=== PATIENT | female | born 1985 | race Caucasian/White ===

== ENCOUNTER → 2017-12-26 14:49 | Outpatient (CLI) | payer OTHER, SELFPAY ==
[2017-12-26 21:21] LABS: Chlamydia Trachomatis by PCR Negative (Negative); Neisserai gonorrhoeae by PCR Negative (Negative); Probe Check PASS; Sample Adequacy Control PASS; Specimen Processing Control PASS
== END ==
PROVIDERS: Visit Provider Obstetrics & Gynecology
DX: Z11.3 Encounter for screening for infections with a predominantly sexual mode of transmission (principal)
CPT/HCPCS: 87491; 87591

== ENCOUNTER → 2018-01-30 11:36 | Outpatient (CLI) | payer OTHER, SELFPAY ==
[2018-01-30 14:07] LABS: Absolute Neutrophil Count 7.2 X10^3/uL (2.0-7.7); Basophil# 0.01 X10^3/uL; Basophil% 0.1 % (0-1); Eosinophil# 0.12 X10^3/uL; Eosinophils% 1.3 % (0-5); Hematocrit 40.7 % (37-47); Hemoglobin 14.3 g/dl (12.0-15.0); Lymphocyte % 16.1 % (19-41); Mean Corp Hgb Conc 35.1 g/gl (32-36); Mean Corpuscular Hgb 33.1 pg (27.0-32.0); Mean Corpuscular Volume 94.2 fL (81-99); Mean Platelet Vol. 9.9 fl (6.2-12.0); Monocyte# 0.47 X10^3/uL; Neutrophil # 7.22 X10^3/uL (2.7-7.7); Neutrophil % 77.4 % (47-70); Platelet Count 261 K/mm3 (150-450); RBC Distribution Width CV 12.2 % (11.6-14.6); Red Blood Count 4.32 M/mm3 (4.2-5.4); White Blood Count 9.3 K/mm3 (4.4-11.0)
[2018-01-30 14:10] LABS: POSITIVE COUNT NO; POSITIVE DIFFERENTIAL NO; POSITIVE MORPHOLOGY NO
[2018-01-30 14:24] LABS: Thyroid Stim Hormone (TSH) 0.73 uIU/mL (0.358-3.74)
[2018-01-30 14:47] LABS: Amphetamine Urine VISTA NEGATIVE (<1000 ng/mL); Barbiturate Urine VISTA NEGATIVE (< 200 ng/mL); Benzodiazepine Urine VISTA NEGATIVE (< 200 ng/mL); Cocaine Urine VISTA NEGATIVE (< 300 ng/mL); Ecstacy Urine VISTA NEGATIVE (< 500 ng/mL); Methadone Urine VISTA NEGATIVE (< 300 ng/mL); PCP Urine VISTA NEGATIVE (< 25 ng/mL); THC Urine VISTA NEGATIVE (< 50 ng/mL); Vista UDS pH Range 5
[2018-01-30 14:54] LABS: Color, Urine Yellow (Yellow); Glucose, Dipstick Normal (Normal); Ketone-Dipstick Negative (Negative); Leukocyte Esterase-Dipstick 25 /ul (Negative); Nitrite-Dipstick Negative (Negative); Occult Blood-Urine Negative /ul (Negative); Protein-Dipstick Negative (Negative); Urine Bilirubin Dipstick Negative (Negative); Urine Clarity Sl. Cloudy (Clear); Urine Urobilinogen Normal (Normal)
[2018-01-30 15:04] LABS: HIV - WCH Non-Reactive (Nonreactive); Rubella IgG 42.8 IU/mL
[2018-01-31 08:31] LABS: HEPATITIS B SURFACE AG Negative (Negative); Hep C Antibodies <0.1 s/co ratio (0.0-0.9)
[2018-02-06 04:13] LABS: Prenatal RPR NONREACTIVE (NONREACTIVE)
== END ==
PROVIDERS: PCP Internal Medicine; Visit Provider Obstetrics & Gynecology
DX: Z34.81 Encounter for supervision of other normal pregnancy, first trimester (principal)
CPT/HCPCS: 36415; 80307; 81002; 84443; 85025; 86703; 86762; 86803; 87340

== ENCOUNTER → 2018-06-11 15:58 | Outpatient (CLI) | payer OTHER, SELFPAY ==
[2015-10-27 06:26] VITALS: BMI 28.8
[2018-06-11 17:41] LABS: Hemoglobin 11.9 g/dl (12.0-15.0); Mean Corpuscular Hgb 33.2 pg (27.0-32.0); Mean Corpuscular Volume 97.8 fL (81-99); Mean Platelet Vol. 9.5 fl (6.2-12.0); Platelet Count 188 K/mm3 (150-450); RBC Distribution Width CV 12.7 % (11.6-14.6); RBC Distribution Width SD 45.2 fl (35.1-43.9); Red Blood Count 3.58 M/mm3 (4.2-5.4); White Blood Count 5.8 K/mm3 (4.4-11.0)
[2018-06-11 17:42] LABS: Scan Indicated on CBC? Y/N NO
[2018-06-11 17:47] LABS: Glucose Challenge Gest 1H 50g 69 mg/dL (70-140)
== END ==
PROVIDERS: Visit Provider Obstetrics & Gynecology
DX: Z34.83 Encounter for supervision of other normal pregnancy, third trimester (principal)
CPT/HCPCS: 36415; 82950; 85027

== ENCOUNTER → 2018-08-07 11:50 | Outpatient (CLI) | payer OTHER, SELFPAY | PROVIDERS: Visit Provider Obstetrics & Gynecology | DX: Z36.85 Encounter for antenatal screening for Streptococcus B (principal) | CPT/HCPCS: 87081 ==

== ENCOUNTER 2018-09-03 03:35 | Inpatient (IN) | payer OTHER, SELFPAY ==
[2015-10-27 06:26] VITALS: BMI 28.8
[2018-09-03 04:19] VITALS: BMI 28.8
[2018-09-03] MEDS: Lactated Ringers 1,000 ML 50 ML IV ×2 (04:27→05:33)
[2018-09-03 04:40] LABS: Absolute Lymphocyte Count 1.37 X10^3/ul (0.83-4.51); Basophil# 0.01 X10^3/uL; Basophil% 0.1 % (0-1); Eosinophil# 0.04 X10^3/uL; Eosinophils% 0.4 % (0-5); Hematocrit 35.8 % (37-47); Hemoglobin 12.6 g/dl (12.0-15.0); Lymphocyte # 1.37 X10^3/ul (4.0); Lymphocyte % 15.1 % (19-41); Mean Corp Hgb Conc 35.2 g/gl (32-36); Mean Corpuscular Hgb 32.5 pg (27.0-32.0); Mean Corpuscular Volume 92.3 fL (81-99); Mean Platelet Vol. 10.4 fl (6.2-12.0); Monocyte# 0.63 X10^3/uL; Monocyte% 6.9 % (0-10); Neutrophil # 6.99 X10^3/uL (2.7-7.7); Neutrophil % 77.1 % (47-70); Platelet Count 193 K/mm3 (150-450); RBC Distribution Width CV 12.3 % (11.6-14.6); RBC Distribution Width SD 40.8 fl (35.1-43.9); Red Blood Count 3.88 M/mm3 (4.2-5.4); White Blood Count 9.1 K/mm3 (4.4-11.0)
[2018-09-03 04:41] LABS: POSITIVE COUNT NO; POSITIVE DIFFERENTIAL NO; POSITIVE MORPHOLOGY NO
[2018-09-03] MEDS: fentaNYL-bupivacaine (epidural) 100 ML BAG EPIDURAL (06:06)
--- NOTE | 2018-09-03 07:00 | PCM.PN.OB ---
Subjective: Comfortable with epidural in place. Objective: Afeb VSS - Physical Exam General: Alert, Oriented x3, Cooperative, No apparent distress Abdomen: Soft, Non Tender, Non-Distended, Gravid, Appropriate for Gestational Age Extremities: No edema Skin: No rashes Neurological: Neuro grossly intact Psych/Mental Status: Normal Affect Comment: CE /-1 Weight: 178 lb 5.663 oz Body Mass Index (BMI) 28.8 Intake and Output for Last 24 Hours 09/01/18 09/02/18 09/03/18 23:59 23:59 23:59 Intake Total 926 / 926 Balance 926 / 926 Laboratory Tests Past 24 Hrs 09/03/18 09/03/18 04:27 04:27 WBC 9.1 RBC 3.88 L Hgb 12.6 Hct 35.8 L MCV 92.3 MCH 32.5 H MCHC 35.2 RDW 12.3 RDW Differential 40.8 Plt Count 193 MPV 10.4 Immature Gran % (Auto) 0.400 Neut % (Auto) 77.1 H Lymph % (Auto) 15.1 L [place] % (Auto) 6.9 Eos % (Auto) 0.4 Baso % (Auto) 0.1 Absolute Neuts (auto) 7.0 Absolute Lymphs (auto) 1.37 Total Counted Not Reportable Blood Type B POSITIVE Antibody Screen NEGATIVE Medical Necessity - Tobacco Use Smoking Status: Never smoker Assessment/Plan Progressing in labor. AROM performed with thin meconium noted. FHR tracing CAT 1.
--- NOTE | 2018-09-03 09:53 | DCINST_ITS ---
Discharge Diet: No Restrictions Discharge Activity: Return to Normal Activity, May Drive, May Shower Return to work on:: 10/22/18 May resume sexual activity in: 4-6 weeks Call your doctor if your incision/area has: Sudden Increased Bleeding Call your doctor if you observe: Fever of 101 or Higher, Inability to urinate, Inability to have a bowel movement, Using more than one pad per hour, Shortness of breath, Chest pain, Calf discomfort, Uncontrolled pain Cleanse incision/area with: Soap & Water Additional Instructions: If you experience any of the following, contact your healthcare provider. * Bleeding that soaks a pad every hour for 2 hours * Fever 100.4 or higher * Unrelieved incision or abdominal pain * Swelling, redness, discharge or bleeding from your incision or episiotomy site * Your incision begins to separate * Problems urinating (including inability to urinate or burning while urinating). * Visual changes * Severe headache * Flu-like symptoms * Pain or redness in one of both of your breasts * Pain, warmth, tenderness or swelling in your legs, especially the calf area * Frequent nausea and vomiting * Symptoms of depression or anxiety If you experience any of the following, call 911 or go to the nearest Emergency Room. * Chest pain * Problems breathing * Seizure activity * Partial or complete paralysis of a body part, slurred speech, weakness or drooping of the face, or a sudden inability to walk or hold your balance Allergies/Adverse Reactions: Allergies No Known Allergies Allergy (Verified 09/03/18 04:16) Medications to take at Discharge Prenatabs FA 1 tablet PO DAILY 10/27/15 Ibuprofen [Motrin] 600 mg PO Q6H PRN PRN #30 tab 09/03/18 The following prescriptions were given: Ibuprofen [Motrin] 600 mg PO Q6H PRN PRN #30 tab PRN Reason: pain or cramping Please Follow Up With: Prabhakar López MD When: 6 weeks Test Results: Test results from this visit will be discussed in further detail at your follow- up appointment, if applicable. Proposed Discharge Date: 09/05/18
[2018-09-03] MEDS: Oxytocin 30 units/NS 500 ml 30 UNITS/500 ML IV.SOLN 334 UNITS IV (10:10)
--- NOTE | 2018-09-03 10:18 | PCM.OPRPT ---
Vaginal Delivery Maternal Presentation: Active Labor 40 weeks in active labor Amniotic Membrane Rupture Type: Artificial Rupture of Membrane time: 07 Amniotic Fluid Description: Clear Final TRU: 09/03/18 Final TRU Source: US <20 weeks Gestational age: 40 Weeks and 0 Days Date of Procedure: 09/03/18 Pre-Operative Diagnosis: laboir Post-Operative Diagnosis: same Surgery/ Procedure Performed: Spontaneous Vaginal Delivery Anesthesiologist: Huey Ryan Type of Anesthesia: Epidural Description of Procedure: Progressed to FD they pushed for a short time to deliver a live female without complication. Placenta delivered intact with eccentrically located 3VC. Second degree posterior vaginal/perineal tear repaired with 2-0 Vicryl. Presentation: Vertex Placental Delivery Description: Spontaneous Placenta Disposition: [facility] Percentage of Placenta Abruption: 0 Cord Vessel Description: 3 Vessels Nuchal Cord Compression: Without compression Cord Entanglement: None Drain: [place] to straight drain Estimated Blood Loss: 250cc Infant A gender: Female (1 minute): 8 (5 minute): 9 Episiotomy Description: None Laceration: Midline, Perineal Extension/lac, Vaginal Extension/lac, 2nd degree Medications given after delivery: IV Pitocin Complications: None
[2018-09-03] MEDS: Oxytocin 30 units/NS 500 ml 30 UNITS/500 ML IV.SOLN 167 UNITS IV (10:40)
[2018-09-03] MEDS: Prenatal Vits Tablet 1 TABLET PO (14:01)
[2018-09-03 16:00] VITALS: BP 116/68; PULSE 92; RESP 16; TEMP 37.2
[2018-09-03] MEDS: Ibuprofen 600 MG Tablet PO (19:40)
[2018-09-03 19:45] VITALS: BP 129/82; PULSE 92; RESP 16; TEMP 37.7; O2SAT 99
[2018-09-04 00:45] VITALS: BP 125/75; PULSE 76; RESP 16; TEMP 36.8
[2018-09-04 02:00] VITALS: BP 124/70; PULSE 83; RESP 16; TEMP 37.1; O2SAT 97
[2018-09-04] MEDS: Ibuprofen 600 MG Tablet PO ×2 (04:15→11:13)
[2018-09-04 06:36] LABS: Hematocrit 34.1 % (37-47); Hemoglobin 11.8 g/dl (12.0-15.0); Mean Corp Hgb Conc 34.6 g/gl (32-36); Mean Corpuscular Hgb 32.5 pg (27.0-32.0); Mean Corpuscular Volume 93.9 fL (81-99); Mean Platelet Vol. 10.1 fl (6.2-12.0); Platelet Count 146 K/mm3 (150-450); RBC Distribution Width CV 12.7 % (11.6-14.6); RBC Distribution Width SD 42.4 fl (35.1-43.9); Red Blood Count 3.63 M/mm3 (4.2-5.4); Scan Indicated on CBC? Y/N NO
--- NOTE | 2018-09-04 07:40 | PCM.PN.OB ---
Subjective: PPD#1 Doing well. Breast feeding. Would like to go home today if baby is released. No concerns voiced. Feels well. - Physical Exam General: Alert, Oriented x3, Cooperative, No apparent distress HEENT: Atraumatic Neck: Supple Abdomen: Soft - fundus firm NT inferior to umbilicus Neurological: Cranial nerves II-XII grossly intact Psych/Mental Status: Normal Affect Vital Signs Temp Pulse Resp BP Pulse Ox 98.7 F 83 16 124/70 H 97 09/04/18 02:00 09/04/18 02:00 09/04/18 02:00 09/04/18 02:00 09/04/18 02:00 Oxygen Delivery Method Room Air Weight: 80.9 kg Body Mass Index (BMI) 28.8 Intake and Output for Last 24 Hours 09/02/18 09/03/18 09/04/18 23:59 23:59 23:59 Intake Total 2536 / 2536 Output Total 1750 / 1750 200 / 200 Balance 786 / 786 -200 / -200 Laboratory Tests Past 24 Hrs 09/04/18 06:25 WBC 9.0 RBC 3.63 L Hgb 11.8 L Hct 34.1 L MCV 93.9 MCH 32.5 H MCHC 34.6 RDW 12.7 RDW Differential 42.4 Plt Count 146 L MPV 10.1 Medical Necessity - Tobacco Use Smoking Status: Never smoker Assessment/Plan PPD#1 Stable pp. Continue care for now. Plans dischg home today if baby is released. RTO in 6 wk for pp check.
[2018-09-04 09:00] VITALS: BP 108/56; PULSE 70; RESP 16; TEMP 36.6; O2SAT 99
== END 2018-09-04 11:40 | disposition home or self-care (01) | DRG 807 ==
PROVIDERS: Admitting Provider Obstetrics & Gynecology; Referring Provider Obstetrics & Gynecology; Visit Provider Obstetrics & Gynecology
DX: O99.52 Diseases of the respiratory system complicating childbirth (principal); Z37.0 Single live birth; J45.909 Unspecified asthma, uncomplicated; O70.1 Second degree perineal laceration during delivery; O77.0 Labor and delivery complicated by meconium in amniotic fluid; O69.1XX0 Labor and delivery complicated by cord around neck, with compression, not applicable or unspecified; Z3A.40 40 weeks gestation of pregnancy
CPT/HCPCS: 59050; 85025; 85027; 86850; 86900; 99218; J7120; G0378

== ENCOUNTER → 2018-10-14 11:01 | Outpatient (CLI) | payer OTHER, SELFPAY ==
[2018-10-21 17:58] LABS: HPV Reflexed? NOT INDICATED
== END ==
PROVIDERS: Visit Provider Obstetrics & Gynecology
DX: Z12.4 Encounter for screening for malignant neoplasm of cervix (principal)
CPT/HCPCS: 87624; 88175; G0145

== ENCOUNTER → 2020-12-06 | Outpatient (CLI) | payer OTHER, SELFPAY ==
[2020-12-11 14:09] LABS: HPV Reflexed? NOT INDICATED
== END | disposition home or self-care (01) ==
LOC: LABSPEC 16:44
PROVIDERS: Visit Provider Obstetrics & Gynecology
DX: Z12.4 Encounter for screening for malignant neoplasm of cervix (principal)
CPT/HCPCS: 88175; G0145

== ENCOUNTER → 2021-11-26 | Outpatient (CLI) | payer OTHER, SELFPAY ==
[2021-11-30 11:43] LABS: HPV APTIMA, High Risk Negative (Negative)
== END | disposition home or self-care (01) ==
LOC: LABSPEC 12:25
PROVIDERS: Visit Provider Student in an Organized Health Care Education/Training Program
DX: Z12.4 Encounter for screening for malignant neoplasm of cervix (principal)
CPT/HCPCS: 87624; 88175; G0145

== ENCOUNTER → 2023-08-29 | Outpatient (CLI) | payer OTHER, SELFPAY ==
--- NOTE | 2023-08-29 09:56 | US_ITS ---
STUDY: ABDOMINAL ULTRASOUND - RIGHT UPPER QUADRANT REASON FOR VISIT: Female, 37 years old EPIGASTRIC PAIN TECHNIQUE: Ultrasound evaluation of the right upper quadrant was performed with real-time and static winston-scale imaging. TECHNICAL QUALITY: Adequate. COMPARISON: None. FINDINGS: Liver: The liver measures 15.6 cm. There is normal echogenicity of the liver. The bile ducts are within normal limits. There is hepatic color flow. The direction of portal flow is hepatopetal. There is no demonstrated mass lesion. Gallbladder: Normal distended gallbladder. The gallbladder wall measures 1.2 mm. There is a negative sonographic Sosa''s sign. There is no pericholecystic fluid. There are no gallstones. Common Bile Duct (C.B.D.): The common bile duct measures 3.3 mm. Pancreas: Normal size of the head, body and tail of the pancreas. There is normal echogenicity of the pancreas. There is no demonstrated pancreatic mass or cyst. Right Kidney: Normal size of the right kidney. The right kidney measures 12.2 cm x 5.4 cm x 3.8 cm. Normal renal cortex. The right cortex measures 1.7 cm. There is no demonstrated renal mass or cyst. There is no right hydronephrosis. US/Abdomen Limited IMPRESSION: Normal right upper quadrant ultrasound examination. Electronically Signed: Chase Willard MD at 15:10 EDT ,
== END | disposition home or self-care (01) ==
LOC: US 09:38
PROVIDERS: PCP Internal Medicine; Referring Provider Internal Medicine; Visit Provider Internal Medicine
DX: R10.13 Epigastric pain (principal)
CPT/HCPCS: 76705

== ENCOUNTER → 2023-12-05 | Outpatient (CLI) | payer OTHER, SELFPAY ==
--- NOTE | 2023-12-05 11:05 | MRI_ITS ---
STUDY: MRI LEFT FOOT REASON FOR EXAM: Female, 38 years old. Enthesopathy of left foot and ankle. TECHNIQUE: Standardized fat and water weighted pulse sequences were obtained in all 3 orthogonal planes. COMPARISON: None. FINDINGS: There is a 5 x 5 x 3 mm ganglion cyst plantar to the condyle of the second proximal phalanx (sagittal STIR series 8 image 18; axial T2 series 5 image 24). Normal bone marrow of the metatarsals, phalanges and visualized distal tarsal row, without fracture, periostitis, erosions or reactive bone edema. Normal sesamoids without sesamoiditis, fracture or avascular necrosis. Normal joint spaces, without effusions. There are no extraarticular fluid collections. Normal visualized Lisfranc joints and normal Lisfranc ligament. There is mild third intermetatarsal space bursitis (axial STIR series 6 image 16). Normal visualized flexor and extensor tendons. Normal visualized plantar fascia without fasciitis, fibromatosis or tear. Normal intrinsic muscles of the foot, without soft tissue masses or evidence of denervation atrophy. Normal dorsal and plantar subcutis adipose space. MRI/Lower Ext/No Jt/w/o IMPRESSION: 5 x 5 x 3 mm ganglion cyst plantar to the condyle of the second proximal phalanx. Mild third intermetatarsal space bursitis. Electronically Signed: Dirk Plaza MD at 14:18 EDT ,
== END | disposition home or self-care (01) ==
PROVIDERS: PCP Internal Medicine; Referring Provider Podiatrist; Visit Provider Podiatrist
DX: M77.52 Other enthesopathy of left foot and ankle (principal)
CPT/HCPCS: 73718

== ENCOUNTER 2024-03-05 05:45 | Day surgery (SDC) | payer OTHER, SELFPAY ==
[2024-03-05] VITALS (8 sets, daily range): BP systolic 110–127; BP diastolic 75–105; PULSE 61–92; RESP 16; TEMP 36.2–37; O2SAT 100; BMI 22.1
[2024-03-05] MEDS: Lactated Ringers 1,000 ML 15 ML IV (06:15)
[2024-03-05 06:33] LABS: Internal QC Validated? YES +Cl - CLEAR BKGD; Pregnancy, Urine Negative Negative; Record Kit Lot#,Urine Preg 869294
--- NOTE | 2024-03-05 06:37 | PRE.ANES_ITS ---
ASA Classification* ASA Classification ASA Classification: 2 Assessment & Plan Anesthesia* Anesthesia Assessment Anesthesia Assessment: Discussed sedation and/or anesthesia options, risks, benefits, and alternatives with patient/parents/legal guardian/POA. Questions invited. The patient/parents/legal guardian/POA seems to understand and agrees to proceed with anesthesia plan. Reviewed the physical assessment, medical history, allergy history and patient home medications list prior to surgery/procedure/anesthetic and documented any changes. Performed airway and anesthesia risk assessments. Anesthesia Type Anesthesia Type: General Anesthesia Focused Assessment* Temperature: 97.1 F Pulse Rate: 79 Blood Pressure: 126/92 Respiratory Rate: 16 Pulse Ox: 100 Airway Assessment Mouth opens: >3 cm Mallampati Score: II Focused Labs Anesthesia Preop lab: CBC WBC 9.0 K/mm3 (4.4-11.0) 09/04/18 06:25 RBC 3.63 M/mm3 (4.2-5.4) L 09/04/18 06:25 Hgb 11.8 g/dl (12.0-15.0) L 09/04/18 06:25 Hct 34.1 % (37-47) L 09/04/18 06:25 Plt Count 146 K/mm3 (150-450) L 09/04/18 06:25 CHEMISTRY Potassium 3.7 mmol/L (3.5-5.1) 03/31/15 23:25 Sodium 136 mmol/L (136-145) 03/31/15 23:25 BUN 12 mg/dL (7-18) 03/31/15 23:25 Creatinine 0.75 mg/dL (0.55-1.20) 03/31/15 23:25 Glucose 138 mg/dL (70-110) H 03/31/15 23:25 TSH 0.73 uIU/mL (0.358-3.74) 01/30/18 11:41 COAG Urine Test Negative Negative 03/05/24 06:01 Pre-Assessment Diagnosis/Proposed Procedure Planned Operative Procedure(s): CORRECTION OF THE LEFT SECOND HAMMER TOE,FLEXOR TENDON TRANSFER OF THE LEFT SECOND TOE AND LEFT FOOT SECOND METATARSAL OSTEOTOMY Anesthesia History Anesthesia History - program support specialist: Anesthesia History - program support specialist Hx Hospitalization No 03/01/24 10:21 Any Problems With Anesthesia No 03/01/24 10:21 Cholinesterase deficiency No 03/01/24 10:21 You/Your Family Experience No 03/01/24 10:21 fever (hyperthermia) with Relationship Recent Exposure to Contagious No 03/05/24 06:13 Disease Does patient have nerve No 03/01/24 10:21 stimulator Patient instructed to have device shut off --Does patient have Pacemaker No 03/05/24 06:13 or ICD? When Was Last Pacemaker Check QUESTION #4 FULL TEXT: You/Your Family Experience fever (hyperthermia) with Anesthesia Last Oral Intake Last Oral intake: Last Oral Intake NPO since 22:00 03/05/24 06:13 Meds taken in AM with sips of water? Meds patient instructed to take am of surgery PONV PONV - program support specialist: PONV - program support specialist Female Yes 03/01/24 10:21 HX of Motion Sickness No 03/01/24 10:21 HX of N/V After Surgery Yes 03/01/24 10:21 Non-Smoker Yes 03/01/24 10:21 Duration of Surgery greater Yes 03/01/24 10:21 than 60 minutes Number of Risk Factors 4 03/01/24 10:21 PONV Score Severe Risk 03/01/24 10:21 Height & Weight Height & Weight: Anesthesia: Height & Weight Height 5 ft 6 in 03/05/24 06:13 Weight: 62.2 kg 03/05/24 06:13 Body Mass Index (BMI) 22.1 03/05/24 06:13 Respiratory Assessment Respiratory Assessment - program support specialist: Respiratory Tract Infection Hx - program support specialist Hx Respiratory Tract Infection Yes: HEAD COLD/IMPROVED 03/01/24 10:21 STOP Sleep Apnea STOP Sleep Apnea - program support specialist: STOP Sleep Apnea - program support specialist Hx Hypertension No 03/01/24 10:21 Hx Sleep Apnea No 03/01/24 10:21 CPAP BIPAP Do you snore loudly (louder No 03/01/24 10:21 than talking or can be heard Do you often feel tired/ No 03/01/24 10:21 fatigued/ sleepy during daytime? Has anyone observed you stop No 03/01/24 10:21 breathing during sleep? STOP Results Negative 03/01/24 10:21 QUESTION #5 FULL TEXT : Do you snore loudly (louder than talking or can be heard through closed doors)? Tobacco Use History Tobacco Use History - program support specialist: Tobacco Use History - program support specialist Tobacco Use Smoking Status Never smoker 03/01/24 10:21 Hx Tobacco Use No 03/01/24 10:21 Years Smoking Packs Smoked per Day Smoking Cessation Date was within the last 15 years Hx Smoking Cessation Date Hx Smoking Cessation Counseling Hematologic Medial History Hematologic Hx - program support specialist: Hematologic Medical Hx - form worker Hx of Blood Transfusion No 03/01/24 10:21 Hx of Transfusion in last 3 No 03/01/24 10:21 Months Date of Last Transfusion (if within last 3 months) Ever experience any problems No 03/01/24 10:21 with transfusion(s)? Specify any problems Hx of Preganancy in last 3 No 03/01/24 10:21 Months Nurse Filling Out Transfusion DSCHRIBER 03/01/24 10:21 & Questions: Date: 03/01/24 03/01/24 10:21 Time: 10:22 03/01/24 10:21 Patient unable to answer at this time (ie. confused, unrespo /Reproduction History /Reproductive History - program support specialist: /Reproductive Hx- program support specialist Hx Now No 03/01/24 10:21 Gestational Age (in weeks): EDC: Hx Hx Para Hx Section SAB No 03/01/24 10:21 Active Medications Active Medications: Current Medications Generic Name Dose Route Start Last Admin Trade Name Freq PRN Reason Stop Dose Admin Cefazolin Sodium 2 gm/ N/A 20 mls @ 400 mls/hr 03/05/24 07:30 IV 03/05/24 07:32 PREOP ONE Lactated Ringer's 1,000 mls @ 15 mls/hr 03/05/24 06:00 03/05/24 06:15 IV 03/10/24 19:19 15 mls/hr .Q48H JUSTIN Administration Protocol PFSH Medical History Wears contact lenses Gastric reflux Asthma Non-smoker Home Medications ?Medication ?Instructions ?Recorded ?Last Taken ?Type albuterol sulfate 90 mcg/actuation 2 puff inhalation 4X/DAY PRN PRN 03/01/24 Unknown History aerosol inhaler shortness of breath or wheezing cetirizine 10 mg capsule (Zyrtec) 10 mg PO DAILY PRN allergy symptoms 03/01/24 Unknown History famotidine 40 mg tablet 40 mg PO BID PRN PRN GERD 03/01/24 Unknown History fluticasone propionate 50 1 spray intranasal BID PRN PRN 03/01/24 Unknown History mcg/actuation nasal allergies spray,suspension Allergy/AdvReac Type Severity Reaction Status Date / Time No Known Allergies Allergy Verified 03/05/24 06:12 Surgical History Hx of wisdom tooth extraction Hx of arthroscopic knee surgery Social History Smoking Status: Never smoker Review of Systems (Anesthesia) ROS Narrative System reviewed and no additional complaints, except as documented.
[2024-03-05] MEDS: Cefazolin 2 GM in Syringe IV (07:26)
--- NOTE | 2024-03-05 07:30 | RAD_ITS ---
Exam: XR Foot 2 Views LEFT History: 2ND LEFT HAMMERTOE CORRECTION. 4 SPOTS. 22 SECONDS. 0.115 mGy FLUOROSCOPIC INTRAOPERATIVE EXAM: Exams: 4 fluoroscopic images. Radiation exposure: Total DAP 1.9315 cGy*cm2. Total Air Kerma 0.1150 mGY. FINDINGS: Hardware in the second digit including distal metatarsal bridging the second PIP joint. RAD/Foot 2 Views IMPRESSION: Intraprocedural exam. Electronically Signed: Ksenia Herrera MD at 2:50 EST ,
[2024-03-05] MEDS: Bupivacaine Mpf 0.5% 30 ML VIAL (09:10)
--- NOTE | 2024-03-05 09:19 | OP.PCM_ITS ---
Problems Associated Problem List Diagnoses (1) Other hammer toe(s) (acquired), left foot: (2) Other enthesopathy of left foot and ankle: (3) Pain in left foot: (4) Acquired deformity of left foot: (5) Deformity of metatarsal bone of left foot: Operative Report (Standard) Operative Information Surgery/Procedure Performed: Left second toe Manuel osteotomy with hammertoe correction via PIPJ arthrodesis and flexor tendon transfer. Surgeon: Cisco Toth Date of Procedure: 03/05/24 Procedure Start Time: 07:30 Procedure Stop Time: 09:00 Pre-Operative Diagnosis: Hammertoe second toe with plantar plate injury and long second ray left foot Post-Operative Diagnosis: Same Select all DRAINS/GRAFTS/IMPLANTS that apply: Implanted device Implanted device details: [place] implant for proximal interphalangeal joint arthrodesis as well as two 7 mm pop-off screw for Manuel osteotomy Type of Anesthesia: General and Local Special Medications: 30 cc half percent Marcaine plain Estimated Blood Loss: Minimal mi Specimen collected: No Description of surgery: Patient brought back to the operating placed complete supine position on operating room table. Patient induced under general anesthesia. All osseous prominences offloaded prevent any compression neuropraxia's. Well-padded left thigh tourniquet was applied. Left lower extremity was positioned to knock out any external rotation. Left lower extremity was scrubbed prepped draped using typical aseptic fashion. Once cleared by anesthesia left lower extremity was elevated exsanguinated tourniquet was inflated 300 mmHg. 30 cc half percent Marcaine plain were used to perform a block to the second ray on the left foot. A long linear incision extending just distal to the distal interphalangeal joint and just proximal to the metatarsal phalangeal joint was drawn along the dorsal aspect of the left second digit this incision was made with a 15 blade through epidermis dermis to subcutaneous tissue any bleeders were identified and cauterized neurovascular structures were identified bluntly retracted and protected. Blunt dissection was taken down the level of deep fascia and extensor tendon at which time a transverse capsulotomy and extensor tenotomy was performed at the distal interphalangeal joint and the digital dissection was taken down to the level of the flexor digitorum longus tendon which was transect ed to be retrieved at the proximal interphalangeal joint a transverse capsulotomy was performed dorsally at the proximal interphalangeal joint the medial and lateral collateral ligaments were released and the flexor digitorum longus tendon was fed from distal to proximal through the proximal interphalangeal joint and split to be later transferred around the proximal phalangeal base to allow for sagittal plane correction. Next a Manuel osteotomy was performed in the distal aspect of the second metatarsal head parallel to the weightbearing surface. This was translated posteriorly to allow for shortening of the second ray was held in this position with manual impaction and a two 7 mm pop-off screw was placed to allow for metatarsal correction. Next with the toe placed in a corrected position the proximal phalangeal head and the middle phalangeal base were resected using both combination of bone cutting forceps and sagittal saw. A inDplay hammertoe implant was placed into the middle and proximal phalanx across the proximal interphalangeal joint with good apposition of the joint to allow for fusion in a rectus position. Additional sagittal plane correction was performed with correction of the flexor digitorum longus tendon being placed around the dorsal aspect of the proximal phalangeal base being held in a rectus position and then sutured together using 4-0 Monocryl. All sites were flushed with copious amounts of normal sterile saline. And then the distal and proximal interphalangeal joint capsules as well as extensor digitorum longus tendons were repaired using 4-0 Monocryl. Subcutaneous closure was performed with simple interrupted buried 4-0 Monocryl. Skin closure was performed with 4-0 nylon using combination of horizontal mattress and simple interrupted stitches. Tourniquet was let down prior to incisional closure. Hemostasis was noted. Second toe was cleansed and dressed with Betadine Adaptic 4 x 4's Kerlix and Chuck bandage. Patient was transported to PACU vital sign stable and vascular status intact all digits for further monitoring prior to discharge patient tolerated procedure and anesthesia well apparent satisfactory condition. No pathologic specimens No complications Adequate reduction of hammertoe deformity with good apposition of proximal interphalangeal joint and sagittal plane mandaeism of stability would be a flexor digitorum longus tendon transfer and shortening of the second ray noted with Manuel osteotomy Architectural Technician Tuan Elam PGY1 Surgical Findings: As dictated above Tax Technician program coordinator for residence life: Yes Architectural Technician: Tuan Ealm Tasks completed by respiratory care assistant: Opening, Closing, Harvesting grafts, Dissecting tissue, Removing tissue, Implanting device and Retracting Complications Complications: No
--- NOTE | 2024-03-05 10:15 | PCM.POST.ANE ---
Anesthesia: Postop Eval I Current Vital Signs Temperature: 97.7 F Pulse Rate: 92 Blood Pressure: 125/105 Respiratory Rate: 16 Pulse Ox: 100 Oxygen Delivery Method: Room Air Assessment Airway patent: Yes Spontaneous unlabored respirations: Yes Mental status: Awake and Calm nausea: No Vomiting: No Anesthesia Complication: No Fluid Hydration Crystalloid volume administer (ml): 800 Total IV fluid infused: 800 Progress Note Anesthesia document: Postop Eval 1 completed: Yes
--- NOTE | 2024-03-05 13:08 | POSTOPAN2_ITS ---
Anesthesia Postop Eval I Sum Postop Eval Completion status Anesthesia document: Postop Eval 1 completed: Yes Anesthesia Postop Eval I Summary Anesthesia Postop Eval I Summary: Anesthesia Postop Eval I: Assessment Summary Airway patent Yes 03/05/24 10:16 PHYSICAL EDUCATION TEACHER.MDOT Spontaneous unlabored Yes 03/05/24 10:16 PHYSICAL EDUCATION TEACHER.MDOT respirations Mental status Awake,Calm 03/05/24 10:16 PHYSICAL EDUCATION TEACHER.MDOT nausea No 03/05/24 10:16 PHYSICAL EDUCATION TEACHER.MDOT Vomiting No 03/05/24 10:16 PHYSICAL EDUCATION TEACHER.MDOT Anesthesia Postop Eval I: Fluid Summary Crystalloid volume administer 800 03/05/24 10:16 PHYSICAL EDUCATION TEACHER.MDOT (ml) Colloids volume administered ( ml) Blood Product volume administered (ml) Total IV fluid infused 800 03/05/24 10:16 PHYSICAL EDUCATION TEACHER.MDOT Anesthesia Postop Eval I: Summary Notes Anesthesia Complication No 03/05/24 10:16 PHYSICAL EDUCATION TEACHER.MDOT Anesthesia Complication Comment: Post-operative progress note Anesthesia: Postop Eval II Evaluation Mental status: Awake Pain Level: 0 nausea: No Vomiting: No
--- NOTE | 2024-03-05 13:08 | PCM.POSTANE2 ---
Anesthesia Postop Eval I Sum Postop Eval Completion status Anesthesia document: Postop Eval 1 completed: Yes Anesthesia Postop Eval I Summary Anesthesia Postop Eval I Summary: Anesthesia Postop Eval I: Assessment Summary Airway patent Yes 03/05/24 10:16 ALCOHOL STILL OPERATOR.MDOT Spontaneous unlabored Yes 03/05/24 10:16 ALCOHOL STILL OPERATOR.MDOT respirations Mental status Awake,Calm 03/05/24 10:16 ALCOHOL STILL OPERATOR.MDOT nausea No 03/05/24 10:16 ALCOHOL STILL OPERATOR.MDOT Vomiting No 03/05/24 10:16 ALCOHOL STILL OPERATOR.MDOT Anesthesia Postop Eval I: Fluid Summary Crystalloid volume administer 800 03/05/24 10:16 ALCOHOL STILL OPERATOR.MDOT (ml) Colloids volume administered ( ml) Blood Product volume administered (ml) Total IV fluid infused 800 03/05/24 10:16 ALCOHOL STILL OPERATOR.MDOT Anesthesia Postop Eval I: Summary Notes Anesthesia Complication No 03/05/24 10:16 ALCOHOL STILL OPERATOR.MDOT Anesthesia Complication Comment: Post-operative progress note Anesthesia: Postop Eval II Evaluation Mental status: Awake Pain Level: 0 nausea: No Vomiting: No
== END 2024-03-05 10:27 | disposition home or self-care (01) ==
LOC: SDC 05:45 → AC 05:46
PROVIDERS: Anesthesiology; PCP Internal Medicine; Referring Provider Podiatrist; Visit Provider Podiatrist
PROC: (CPT 28308; principal; 2024-03-05 07:15)
DX: M20.42 Other hammer toe(s) (acquired), left foot (principal); M21.6X2 Other acquired deformities of left foot; M77.8 Other enthesopathies, not elsewhere classified; J45.909 Unspecified asthma, uncomplicated; K58.9 Irritable bowel syndrome, unspecified; Z79.82 Long term (current) use of aspirin; Z79.899 Other long term (current) drug therapy
CPT/HCPCS: 28308; 28285; 73620; 76000; 81025; C1713; J7120; A4216; J2405